=== PATIENT | female | born 1970 | race Caucasian/White ===

== ENCOUNTER 2023-07-14 14:06 | Outpatient (AMB) | payer OTHER, SELFPAY ==
--- NOTE | 2023-07-14 15:05 | MHC.OFFWIV ---
Intake Vital Signs 07/14/23 15:07 Height 5 ft 3 in Weight 116 lb BMI 20.5 BP 112/70 Blood Pressure Location Rt brachial Position Sitting Pulse 76 Pulse Source Pulse Oximeter Temp 97.7 F Temp Source Temporal Artery Scan Pulse Oximetry (%) 98 Oxygen Delivery Method Room Air Intake Visit Reasons: [employer] Cough, Chest, Throat (masked) Intake Note: pt is here today for cough,chest,throat started 5 days ago Allergies No Known Allergies Allergy (Verified 07/14/23 15:19) Medication List - Last Reconciled 07/14/23 by Thuan Arora MD azithromycin take 500 mg today (day 1), then 250 mg for 4 days (days 2-5) PO Do you need a note to return to daycare/school/sports/work: No HPI [employer] Cough, Chest, Throat (masked) HPI Details Patient presents for a sick visit. Reporting symptoms of sinus congestion, sore throat and difficulty swallowing. Low-grade fever. No family member is sick. No recent travel. Patient reports symptoms of malaise and fatigue. Physical Exam Vital Signs: Last Vital Signs Temp 97.7 F 07/14/23 15:07 Pulse 76 07/14/23 15:07 BP 112/70 07/14/23 15:07 Pulse Ox 98 07/14/23 15:07 Oxygen Delivery Method Room Air 07/14/23 15:07 BMI result Body Mass Index 20.5 Const General: cooperative and healthy appearing Nutritional Appearance: well nourished Orientation/consciousness: patient oriented x3 Limitations: no limitations HEENT Head: Yes normal to inspection Eyes General: appearance normal, both eyes and all related structures Neck Neck: Yes normal visual inspection Chest Chest palpation & inspection: normal palpation of entire chest wall Resp Effort & Inspection: normal respiratory effort Neuro General: patient oriented x3 Assessment & Plan Assessment & Plan (1) Upper respiratory tract infection: Code(s): J06.9 - Acute upper respiratory infection, unspecified Plan: Antibiotics ordered. Increase fluid intake. Tylenol for aches and pains. If symptoms worsen, follow-up here for a recheck. Orders: Orders SARS-CoV2/FLU/RSV Today R43.9 - Unspecified disturbances of smell and taste Medications: New azithromycin take 500 mg today (day 1), then 250 mg for 4 days (days 2-5) PO 6 tabs 0RF Coding Level of Care Code Est Pt Level 3 (48803) Diagnoses Upper respiratory tract infection J06.9
[2023-07-14 15:07] VITALS: BP 112/70; PULSE 76; TEMP 36.5; O2SAT 98; BMI 20.5
== END 2023-07-14 15:27 | disposition home or self-care (01) ==
PROVIDERS: PCP Internal Medicine; Visit Provider Internal Medicine
DX: J06.9 Acute upper respiratory infection, unspecified (principal); J02.9 Acute pharyngitis, unspecified
CPT/HCPCS: 87880; 99213

== ENCOUNTER 2023-07-14 15:29 | Outpatient (REF) | payer OTHER, SELFPAY ==
[2023-07-14 17:02] LABS: Influenza A PCR NEGATIVE (Negative); Influenza B PCR NEGATIVE (Negative); Resp Syncy Virus RNA Qual PCR NEGATIVE (Negative); SARS COV2 PCR INHOUSE NEGATIVE (Negative)
== END 2023-07-14 15:30 | disposition home or self-care (01) ==
LOC: HO.LAB 15:29
PROVIDERS: Visit Provider Internal Medicine
DX: Z11.52 Encounter for screening for COVID-19 (principal); Z20.822 Contact with and (suspected) exposure to COVID-19; R43.9 Unspecified disturbances of smell and taste
CPT/HCPCS: 0241U